=== PATIENT | female | born 1935 | race Caucasian/White ===

== ENCOUNTER 2021-06-08 11:38 | Emergency (ER) | payer MEDICARE, BC ==
--- NOTE | 2021-06-08 12:29 | EDM.PDOC ---
ED HPI GENERAL MEDICAL PROBLEM - General Chief Complaint: Upper Extremity Injury/Pain Stated Complaint: [facility] Time Seen by Provider: 06/08/21 11:55 Source of Information: Reports: Patient, [facility] Records, RN Notes Reviewed History Limitations: Reports: No Limitations - History of Present Illness INITIAL COMMENTS - FREE TEXT/NARRATIVE: Patient is an 86-year-old female who presents to the ER for evaluation of her right wrist injury. Patient was brought by [facility] ambulance service as she [facility] a local [facility]. Patient states that last night her right wrist that her to bother her, but this morning there was a lot more swelling and discomfort in the wrist. Can move her hand in pretty much all range of motion without much difficulty. No numbness or tingling distal to the injury. No insulting injury or trauma/fall reported. Patient states that it just started swelling. Patient denies any other sick-like symptoms, fever/chills, cough/ shortness of breath, nausea/vomiting/diarrhea. She is complaining of some mild stomach discomfort as well however the patient states that she is not regular with her bowels, and typically has to get enemas to provide rather large bowel movements. States that she has not had a good bowel movement in a day or 2. Right Wrist Pain Score (Numeric/FACES): 6 - Related Data Allergies Allergy/AdvReac Type Severity Reaction Status Date / Time apixaban [From Eliquis] Allergy Rash Verified 06/08/21 11:45 codeine Allergy Rash Verified 06/08/21 11:45 nitrofurantoin Allergy Rash Verified 06/08/21 11:45 [From Macrobid] simvastatin Allergy Rash Verified 06/08/21 11:45 Review of Systems - Review of Systems Review Of Systems: Comprehensive ROS is negative, except as noted in HPI. ED EXAM, GENERAL - Physical Exam Exam: See Below Exam Limited By: No Limitations General Appearance: Alert, WD/WN, No Apparent Distress Respiratory/Chest: No Respiratory Distress, Lungs Clear, Normal Breath Sounds, No Accessory Muscle Use, Chest Non-Tender Cardiovascular: Normal Peripheral Pulses, Regular Rate, Rhythm, No Edema Peripheral Pulses: 2+: Radial (L), Radial (R) GI/Abdominal: Normal Bowel Sounds, Soft, Non-Tender, No Distention, No Mass Extremities: Normal Range of Motion, Normal Capillary Refill, Joint Swelling (of right wrist on the radial aspect, slight tenderness with palpation) Neurological: Alert, Oriented, Normal Cognition, No Motor/Sensory Deficits Psychiatric: Normal Affect, Normal Mood Skin Exam: Warm, Dry, Intact, Normal Color, No Rash ED TRAUMA EXTREMITY PROCEDURES - Splinting Right Upper Extremity Splint Site: R wrist Pre-Procedure NV Status: Normal Post-Procedure NV Status: Normal Splint Material: Fiberglass Splint Design: Gutter (ulnar gutter short arm) Applied & Form Fitted By: Provider, Nurse Provider Post-Splint Application NV Check: NV Status Normal, Good Position Complications: No Course - Vital Signs Last Recorded V/S: Last Vital Signs Temp 98.5 F 06/08/21 11:46 Pulse 89 06/08/21 11:46 Resp 16 06/08/21 11:46 BP 140/89 06/08/21 11:46 Pulse Ox 92 L 06/08/21 11:46 - Orders/Labs/Meds Orders: Active Orders 24 hr Category Date Time Status Wrist Comp Min 3V Rt [CR] Stat Exams 06/08/21 11:50 Taken - Re-Assessments/Exams Free Text/Narrative Re-Assessment/Exam: 06/08/21 12:34 Patient presents to the ER for her right wrist swelling/pain. Also complaining of some abdomen discomfort, is likely that she is constipated due to her reported history. X-rays were performed at the time of triage, patient does have some osteopenia, and may be some old injuries that have healed but hard to discern if there are any acute fractures. We will go ahead and await radiology read for ongoing management. 06/08/21 13:11 V rad has read patient's x-ray is findings suspicious for acute on chronic intra-articular fracture of the distal right radius. This is what I thought I was seeing, along with Dr. Melchor. We will go ahead and get the patient appropriately splinted up at this time. Departure - Departure Time of Disposition: 13:15 Disposition: Home, Self-Care 01 Condition: Good Clinical Impression: Distal radius fracture, right Qualifiers: Encounter type: initial encounter Fracture type: closed Fracture morphology: other fracture Qualified Code(s): S52.591A - Other fractures of lower end of right radius, initial encounter for closed fracture - Discharge Information *PRESCRIPTION DRUG MONITORING PROGRAM REVIEWED*: No *COPY OF PRESCRIPTION DRUG MONITORING REPORT IN PATIENT INDIO: No Instructions: Wrist Fracture Treated With Immobilization, [id number] Referrals: Ba Sahu MD [Primary Care Provider] - Forms: ED Department Discharge Additional Instructions: You have been evaluated in the ED for your right wrist injury. Your x-ray demonstrated an area suspicious for acute on chronic fracture of your distal right radius. Your wrist has been splinted and immobilized for further management of this injury. Please use ice as tolerated to the affected area. You may elevate the affected area to provide further relief from swelling. You may take Tylenol 500 mg q6 hrs for pain relief. Please do so until you have a tolerable level of pain with activity. Do not exceed 4000mg Tylenol in a 24 hour time period. If your pain is not controlled by oral Tylenol over the weekend, do not hesitate to call the ER, and we can provide you with something a little bit stronger for ongoing management. Please call Ortho for follow-up and further evaluation Dr. Tello is our orthopedic surgeon, his office number is [phone]. Please call and set up an appointment as soon as possible for further management; this would be for shantell ting purposes. Please return to ED if your symptoms should change or worsen. Sepsis Event Note (ED) - Evaluation Sepsis Screening Result: No Definite Risk - Focused Exam Vital Signs: Vital Signs Temp Pulse Resp BP Pulse Ox 06/08/21 11:46 98.5 F 89 16 140/89 92 L
[2021-06-08] MEDS ORDERED: Acetaminophen 325 MG Tab PO ONE (14:02)
--- NOTE | 2021-06-09 08:44 | CR ---
Right wrist: 3 views of the right wrist were obtained. Comparison: No prior right wrist exam is available. Deformity is seen within the distal radius compatible with old fracture. Several bony densities are seen around the right wrist which are well corticated and are felt to be old. Joint space narrowing is noted within the carpal bones. Slight widening of the distance between the navicular and lunate bones are seen compatible with intercarpal ligament rupture. I do not see a definite acute fracture line on this exam. Impression: 1. Old fracture deformities. 2. Degenerative change as noted above. 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 3. No definite acute fracture is seen. If patient remains symptomatic, either CT exam or follow-up study in 10-14 days could be recommended. Diagnostic code #2 I slightly disagree with preliminary report from [facility], finalized on 06/08/21, 2:06 PM [employer], code 2
== END 2021-06-08 15:00 | disposition home or self-care (01) ==
LOC: JD.ED 11:38
DX: S52.591A Other fractures of lower end of right radius, initial encounter for closed fracture (principal); Z88.8 Allergy status to other drugs, medicaments and biological substances; Z88.5 Allergy status to narcotic agent; Z88.1 Allergy status to other antibiotic agents; Y92.129 Unspecified place in nursing home as the place of occurrence of the external cause
CPT/HCPCS: 29125; 73110; 99283; A9270